=== PATIENT | female | born 1995 | race Caucasian/White ===

== ENCOUNTER 2022-01-28 14:25 | Inpatient (IN) | payer OTHER ==
[2022-01-28 15:11] LABS: Uric Acid 5.2 mg/dL (3.7-7.4)
[2022-01-28 15:13] LABS: Creatinine,Urine Random 176.9 mg/dL
[2022-01-28 15:28] LABS: Basophils # (A) 0.1 k/uL (0-0.2); Basophils % (A) 1 %; Eosinophils # (A) 0.1 k/uL (0-0.7); Eosinophils % (A) 1 %; HCT 38.7 % (34.0-46.0); HGB 13.5 gm/dL (11.4-16.0); Lymphocytes % (A) 20 %; MCH 32.9 pg (25.0-35.0); MCHC 34.8 g/dL (31.0-37.0); MCV 94.5 fL (80.0-100.0); Mean Platelet Volume 11.7; Monocytes # (A) 0.5 k/uL (0-1.0); Monocytes % (A) 5 %; Neutrophils # (A) 7.3 k/uL (1.3-7.7); Neutrophils % (A) 72 %; RBC 4.09 m/uL (3.80-5.40); RDW 15.3 % (11.5-15.5); WBC 10.1 k/uL (3.8-10.6)
[2022-01-28] MEDS ORDERED: LABETALOL 5 MG/ML VIAL MDV IVP PRN ×3 (15:40)
[2022-01-28] MEDS ORDERED: MAGNESIUM SULFATE-WATER PMX 4 GM in WATER FOR INJECTION 1 100ML.BAG IVPB ONE (15:40)
[2022-01-28] MEDS ORDERED: CALCIUM GLUCONATE 1 GM/10 ML VIAL IV PRN (15:40)
[2022-01-28] MEDS ORDERED: hydrALAZINE HCL 20 MG/ML 1 ML VIAL IVP PRN (15:40)
[2022-01-28] MEDS ORDERED: OXYTOCIN 10 UNIT/ML 1 ML VIAL IM PRN (15:42)
[2022-01-28] MEDS ORDERED: CARBOPROST TROMETHAMINE 250 MCG/ML 1 ML AMP IM PRN (15:42)
[2022-01-28] MEDS ORDERED: TERBUTALINE 1 MG/ML VIAL SQ PRN (15:42)
[2022-01-28] MEDS ORDERED: LIDOCAINE 0.5% (PF) 5 MG/ML (50 ML SDV) SQ PRN (15:42)
[2022-01-28] MEDS ORDERED: METHYLERGONOVINE 0.2 MG/ML 1 ML AMP IM PRN (15:42)
[2022-01-28] MEDS ORDERED: OXYTOCIN 30 UNITS/500 ML NS 30 UNIT in SALINE 1 500ML.BAG IV SCH (15:45)
[2022-01-28 15:47] LABS: Platelet Count 60 k/uL (150-450)
[2022-01-28] MEDS: LACTATED RINGERS 1,000 ML IV SCH (16:20)
[2022-01-28] MEDS: MAGNESIUM SULFATE-WATER PMX 20 GM in WATER FOR INJECTION 1 500ML.BAG IV SCH (17:02)
[2022-01-28 18:26] LABS: INR 0.9 (<1.2)
[2022-01-28 20:38] LABS: African American GFR (CKD) >90 (>60 ml/min/1.73 sqM); Blood Urea Nitrogen 12 mg/dL (7-17); Non-African American GFR(CKD) >90 (>60 ml/min/1.73 sqM)
[2022-01-28] MEDS: BUTORPHANOL 1 MG/ML 1 ML VIAL IV PRN (22:56)
[2022-01-29] MEDS: BUTORPHANOL 1 MG/ML 1 ML VIAL IV PRN ×2 (01:11→03:28)
[2022-01-29] MEDS: MAGNESIUM SULFATE-WATER PMX 20 GM in WATER FOR INJECTION 1 500ML.BAG IV SCH ×3 (03:45→23:12)
[2022-01-29 06:29] LABS: HCT 39.9 % (34.0-46.0); HGB 13.3 gm/dL (11.4-16.0); MCH 31.3 pg (25.0-35.0); MCHC 33.4 g/dL (31.0-37.0); MCV 93.5 fL (80.0-100.0); Mean Platelet Volume 9.5; Poikilocytosis Slight; RBC 4.26 m/uL (3.80-5.40); RDW 14.8 % (11.5-15.5); WBC 15.5 k/uL (3.8-10.6)
[2022-01-29 06:42] LABS: Platelet Count 51 k/uL (150-450)
[2022-01-29 06:43] LABS: African American GFR (CKD) >90 (>60 ml/min/1.73 sqM); Blood Urea Nitrogen 11 mg/dL (7-17); Non-African American GFR(CKD) >90 (>60 ml/min/1.73 sqM)
[2022-01-29 07:42] LABS: Uric Acid 6.4 mg/dL (3.7-7.4)
[2022-01-29] MEDS ORDERED: CITRIC ACID-SODIUM CITRATE 15 ML CUP PO ONE (09:08)
[2022-01-29] MEDS ORDERED: OXYTOCIN 10 UNIT/ML 1 ML VIAL ONE (09:20)
[2022-01-29] MEDS ORDERED: DEXAMETHASONE SOD PHOSPHATE 10 MG/ML 1 ML VIAL ONE (09:20)
[2022-01-29] MEDS ORDERED: HYDROmorphone (PF) 1 MG/ML ONE (09:20)
[2022-01-29] MEDS ORDERED: SUCCINYLCHOLINE CHLORIDE 200 MG/10 ML VIAL IV ONE (09:20)
[2022-01-29] MEDS ORDERED: PROPOFOL 10 MG/ML 20 ML VIAL IV ONE (09:20)
[2022-01-29] MEDS ORDERED: ONDANSETRON 4 MG/2 ML VIAL ONE (09:20)
[2022-01-29] MEDS ORDERED: miSOPROStoL 200 MCG TAB PO STA (09:30)
[2022-01-29] MEDS ORDERED: NALOXONE 0.4 MG/ML 1 ML VIAL IV PRN (10:04)
[2022-01-29] MEDS ORDERED: ONDANSETRON 4 MG/2 ML VIAL IVP PRN (10:04)
[2022-01-29] MEDS ORDERED: ZOLPIDEM 5 MG TAB PO PRN (10:04)
[2022-01-29] MEDS ORDERED: diphenhydrAMINE 50 MG/ML 1 ML VIAL IVP PRN ×2 (10:04)
[2022-01-29] MEDS ORDERED: SIMETHICONE 80 MG CHEWABLE PO PRN (10:04)
[2022-01-29] MEDS ORDERED: diphenhydrAMINE 50 MG CAP PO PRN (10:04)
[2022-01-29] MEDS ORDERED: METOCLOPRAMIDE 5 MG/ML 2 ML VIAL IVP PRN (10:04)
[2022-01-29] MEDS ORDERED: diphenhydrAMINE 25 MG CAP PO PRN (10:04)
[2022-01-29] MEDS ORDERED: HYDROmorphone PCA 10 MG/50 ML BAG IV PRN (10:07)
[2022-01-29] MEDS ORDERED: LACTATED RINGERS 1,000 ML IV SCH (10:15)
[2022-01-29] MEDS ORDERED: OXYTOCIN 30 UNITS/500 ML NS 30 UNIT in SALINE 1 500ML.BAG IV SCH (10:15)
--- NOTE | 2022-01-29 10:16 | P.OP ---
Date of Procedure: 01/29/22 Preoperative Diagnosis: IUP at 39-5/7 weeks, hellp syndrome, severe preeclampsia, arrest of descent Postoperative Diagnosis: Same Procedure(s) Performed: Primary low transverse section Anesthesia: CHARMAINE Surgeon: Mayra Mccormick Seasoning Sprayer #1: Chiqui Solis Estimated Blood Loss (ml): 820 Urine output (ml): 100 Pathology: other (Placenta) Condition: stable Disposition: observation Indications for Procedure: 26-year-old at 39-5/7 weeks' seen for routine visit yesterday in the office with noted elevated blood pressures of 138/90, 3+ proteinuria. Patient was sent to triage where preeclampsia labs were drawn. Elevated liver enzymes were noted, low platelets at 60. Patient was admitted to labor and delivery for induction of labor secondary to preeclampsia with severe features and help syndrome. Patient progressed through labor eventually undergoing amniotomy and clear fluid was obtained. Patient progressed through labor using Stadol and nitrous for pain control during labor. She progressed to complete began pushing. After about an hour increasing It with no descent of the head through the bony pelvis was appreciated. Decision at that point was made to proceed with primary . This morning were noted to be 51. Patient was given platelets infusion during the . Operative Findings: Normal uterus tubes and ovaries were appreciated. Viable female delivered at 9:30, weight of 6 lbs. 9 oz., Apgars of 7 and 9 at one and 5 minutes respectively. A large amount That was appreciated. Description of Procedure: Patient was taken back to the operating suite where general anesthesia was obtained without difficulty by the anesthesia department. She was prepped and draped prior to anesthesia in the dorsal supine position. A Pfannenstiel skin incision was made once the ET tube was placed, the incision was extended to the fascia which was extended laterally. The superior aspect of the fascial incision was then grasped eric clamps, elevated and underlying rectus muscle was dissected off sharply. The inferior aspect of the fascial incision was then grasped eric clamps, elevated and underlying rectus muscles dissected off sharply once again. The rectus muscles were in the midline the peritoneum was identified and entered. This incision was then extended superiorly and inferiorly with good visualization of bladder. Bladder blade was inserted. A scalpel was then used to perform hysterotomy incision, clear fluid was encountered. The fetus was noted to be in a vertex presentation and delivered in the usual fashion. Spontaneous cry was noted. The umbilical cord was doubly clamped and cut. The infant was handed off to awaiting RN. The placenta was then delivered manually and the uterus was cleared of all clots and debris and exteriorized. The uterus was noted to be jalen at that time. Cytotec was placed rectally during this time as well. The hysterotomy incision was closed with 0 Vicryl in a running locked fashion. A second inverting suture was performed. Bleeding was noted on the right-hand side of the uterine incision therefore a [id number] suture was used to obtain hemostasis. The uterus was then returned to the abdomen and the gutters were cleared of all clots and debris. The uterine incision was inspected found to be hemostatic and Surgicel powder was placed along the hysterotomy incision. The peritoneum was loosely reapproximated the rectus muscles were inspected a points of bleeding were made hemostatic with the Bovie and a small amount of Surgicel powder that was left. The fascia was then closed with 0 Vicryl in a running fashion from one lateral edge the midline and the other lateral edge the midline. Subcutaneous tissue was found to be hemostatic and closed with 3-0 Vicryl in a running fashion. The skin was then closed with 4-0 Vicryl in a subcuticular fashion. Suture strips and sterile dressings were applied as needed. Bleeding was noted to be appropriate throughout the procedure given her platelets of 51. Uterus noted be firm and below the umbilicus at the end of the procedure. All counts were noted to be correct 2 at the end of the procedure. Patient did tolerate procedure well was taken back to her birthing suite for recovery.
--- NOTE | 2022-01-29 10:17 | P.HPOB ---
History of Present Illness H&P Date: 01/28/22 Chief Complaint: IUP @ 39 5/7 preeclampsia This maria del carmen 26 yo at 39 5/7 weeks that presented to the office for routine PNV, BP elevated at 130/90 and 3 + proteinuria is appreciated. she denies any s/s of preeclampsia. she is noting some midthoraic pain for which she is taking tylenol daily over the last few weeks. She denies VENEGAS or abdominal pain. she does note good FM, and an occasional ctx. she denies LOF or VB. she has been receiving routine care with Dr. Alcaraz and they having been monitoring her BP and also preeclampsia labs. recent negative labs on 01/06. On bloodwork this patient has a blood type of AB+, rubella status immune, B surface antigen negative, HIV negative, RPR is nonreactive, group beta strep culture negative. Review of Systems Constitutional: Denies chills, Denies fatigue, Denies fever Ears, nose, mouth and throat: Denies headache Cardiovascular: Reports leg edema Respiratory: Denies dyspnea Gastrointestinal: Denies nausea, Denies vomiting Genitourinary: Reports Musculoskeletal: Reports as per HPI Past Medical History History of Any Multi-Drug Resistant Organisms: None Reported Smoking Status: Never smoker - Past Family History Father Family Medical History: No Reported History Medications and Allergies Home Medications Medication Instructions Recorded Confirmed Type Acetaminophen Tab [Tylenol] 1 tab PO Q6HR PRN 01/28/22 01/28/22 History Vit No.179/Iron/Folic 1 tab PO DAILY 01/28/22 01/28/22 History [ Tablet] metFORMIN HCL 200 mg PO DAILY 01/28/22 01/28/22 History Allergies Allergy/AdvReac Type Severity Reaction Status Date / Time No Known Allergies Allergy Verified 01/28/22 14:35 Exam Osteopathic Statement: *. No significant issues noted on an osteopathic structural exam other than those noted in the History and Physical/Consult. Intake and Output 01/28/22 01/28/22 01/28/22 06:59 14:59 22:59 Other: Weight 89.811 kg targeted physical exam is done on this date in general this is a well nourished well developed female in NAD, breathing is noted to be non labored. abdomen is gravid and appropriate for GA, FHTs are noted to be category 1 Results Result Diagrams: 01/29/22 06:13 01/29/22 06:13 Abnormal Lab Results - Last 24 Hours (Table) 01/28/22 01/28/22 Range/Units 14:45 14:45 AST 157 H (14-36) U/L ALT 130 H (4-34) U/L U Random Total Protein >600 H (<12) mg/dL Assessment and Plan (1) Term Current Visit: Yes Status: Acute Code(s): Z34.90 - ENCNTR FOR SUPRVSN OF NORMAL , UNSP, UNSP TRIMESTER SNOMED Code(s): 87633728 (2) Preeclampsia Current Visit: Yes Status: Acute Code(s): O14.90 - UNSPECIFIED PRE- ECLAMPSIA, UNSPECIFIED TRIMESTER SNOMED Code(s): 214448124 Plan: 26yo at 39 5/7 weeks with preeclampsia, labs with noted elevated AST/ALT. she is admitted to labor and delivery for IOL, pitocin is started per hospital protocal, magnesium gtt is order as well given these lab findings. Labs reviewed, platelets noted to be 60, patient with diagnosis of hellp syndrome in addition to preeclampsia with severe features.
[2022-01-29] MEDS: LACTATED RINGERS 1,000 ML IV SCH ×3 (10:25→15:50)
[2022-01-29] MEDS: PRENATAL VIT-IRON-FOLIC ACID 1 EACH TABLET PO SCH (10:25)
[2022-01-29] MEDS: ACETAMINOPHEN IV (For NPO) 1,000 MG in EMPTY BAG 1 BAG IVPB SCH ×2 (10:28→18:37)
[2022-01-29 18:04] LABS: HCT 27.5 % (34.0-46.0); MCH 33.2 pg (25.0-35.0); MCHC 35.6 g/dL (31.0-37.0); MCV 93.2 fL (80.0-100.0); Mean Platelet Volume 10.5; Poikilocytosis Slight; RBC 2.95 m/uL (3.80-5.40); RDW 15.4 % (11.5-15.5); WBC 21.5 k/uL (3.8-10.6)
[2022-01-29 18:12] LABS: ALT 92 U/L (4-34); AST 129 U/L (14-36)
[2022-01-29 18:13] LABS: African American GFR (CKD) >90 (>60 ml/min/1.73 sqM); Blood Urea Nitrogen 12 mg/dL (7-17); LDH 1231 U/L (313-618); Non-African American GFR(CKD) >90 (>60 ml/min/1.73 sqM); Uric Acid 6.8 mg/dL (3.7-7.4)
[2022-01-29 18:17] LABS: HGB 9.8 gm/dL (11.4-16.0); INR 0.9 (<1.2); Partial Thromboplastin Time 25.4 sec (22.0-30.0); Prothrombin Time 10.3 sec (9.0-12.0)
[2022-01-29 18:18] LABS: Platelet Count 118 k/uL (150-450)
[2022-01-29 18:37] LABS: Band Neutrophils % 2 %; Lymphocytes # (M) 1.72 k/uL (1.0-4.8); Metamyelocytes # (M) 0.22 k/uL (0); Metamyelocytes % 1 %; Monocytes # (M) 0.43 k/uL (0-1.0); Myelocytes # (M) 0.22 k/uL (0); Myelocytes % 1 %; Neutrophils % (M) 87 %; Nucleated Red Blood Cells 0 /100 WBC (0-0); Total Cells Counted 200
[2022-01-29 18:39] LABS: Anisocytosis (M) Present; Polychromasia Present
[2022-01-29] MEDS: SENNOSIDES-DOCUSATE SODIUM 1 EACH TAB PO SCH (23:13)
[2022-01-30 06:38] LABS: ALT 92 U/L (4-34); AST 106 U/L (14-36); African American GFR (CKD) >90 (>60 ml/min/1.73 sqM); Blood Urea Nitrogen 14 mg/dL (7-17); LDH 1180 U/L (313-618); Non-African American GFR(CKD) 84 (>60 ml/min/1.73 sqM); Uric Acid 7.3 mg/dL (3.7-7.4)
[2022-01-30 06:45] LABS: Anisocytosis Slight; Basophils % (A) 0 %; Eosinophils % (A) 0 %; HCT 26.6 % (34.0-46.0); HGB 9.3 gm/dL (11.4-16.0); Lymphocytes % (A) 15 %; MCH 33.4 pg (25.0-35.0); MCHC 35.1 g/dL (31.0-37.0); MCV 95.1 fL (80.0-100.0); Mean Platelet Volume 10.7; Monocytes # (A) 0.8 k/uL (0-1.0); Monocytes % (A) 4 %; Neutrophils # (A) 15.7 k/uL (1.3-7.7); Neutrophils % (A) 79 %; Platelet Count 136 k/uL (150-450); Poikilocytosis Slight; RBC 2.79 m/uL (3.80-5.40); RDW 16.7 % (11.5-15.5); WBC 19.9 k/uL (3.8-10.6)
[2022-01-30 06:49] LABS: INR 0.8 (<1.2); Partial Thromboplastin Time 22.5 sec (22.0-30.0); Prothrombin Time 9.5 sec (9.0-12.0)
[2022-01-30] MEDS: ACETAMINOPHEN TAB 500 MG TAB PO SCH ×3 (07:14→19:34)
--- NOTE | 2022-01-30 09:38 | P.PN ---
Subjective Progress Note Date: 01/30/22 Principal diagnosis: Postoperative day #1, HELLP syndrome. Vast improvement noted this morning Patient reports fatigue. Denies headache, visual changes, right upper quadrant pain. infant doing well and nursery. Objective - Vital Signs Vital signs: Vital Signs Temp 98.4 F 01/30/22 04:00 Pulse 85 01/30/22 04:00 Resp 16 01/30/22 04:00 BP 118/82 01/30/22 04:00 Pulse Ox 98 01/30/22 04:00 FiO2 Intake & Output 01/29/22 01/30/22 01/30/22 18:59 06:59 18:59 Intake Total 767.5 500 200 Output Total 1452 1250 1600 Balance -684.5 -750 -1400 Intake: IV 200 Intake, IV Titration 432.5 500 Amount Magnesium Sulfate-Water 432.5 500 Pmx 20 gm In Water For Injection 1 500ml.bag @ 2 GM/HR 50 mls/hr IV .Q10H CORTEZ Rx#:[id number] Blood Product 335 Platelet Pheresis Pas 335 Psoralen Unit [id number] Output: Urine 345 1250 1600 Output, Quantitative 1107 Blood Loss - Constitutional General appearance: Present: average body habitus, cooperative - EENT Eyes: Present: PERRLA ENT: Present: hearing grossly normal - Neck Neck: Present: normal ROM - Respiratory Respiratory: bilateral: CTA - Cardiovascular Rhythm: regular - Gastrointestinal Gastrointestinal Comment(s): Fundus firm, midline, symmetric, 18 week size. Incision clean and dry, Steri- Strips applied. - Neurologic Neurologic: Present: CNII-XII intact - Musculoskeletal Musculoskeletal: Present: gait normal, generalized weakness - Psychiatric Psychiatric: Present: A&O x's 3, appropriate affect, intact judgment & insight - Additional findings Additional findings: No peripheral edema. Normal reflexes lower extremities bilaterally. - Labs CBC & Chem 7: 01/30/22 06:11 01/30/22 06:11 Labs: Abnormal Lab Results - Last 24 Hours (Table) 01/29/22 01/29/22 01/29/22 Range/Units 17:52 17:52 17:52 WBC 21.5 H (3.8-10.6) k/uL RBC 2.95 L (3.80-5.40) m/uL Hgb 9.8 L D (11.4-16.0) gm/dL Hct 27.5 L (34.0-46.0) % RDW (11.5-15.5) % Plt Count 118 L D (150-450) k/uL Neutrophils # (1.3-7.7) k/uL Neutrophils # (Manual) 19.10 H (1.3-7.7) k/uL Metamyelocytes # (Man) 0.22 H (0) k/uL Myelocytes # (Manual) 0.22 H (0) k/uL Fibrinogen (200-500) mg/dL AST 129 H (14-36) U/L ALT 92 H (4-34) U/L Lactate Dehydrogenase 1231 H (313-618) U/L 01/29/22 01/30/22 01/30/22 Range/Units 17:52 06:11 06:11 WBC 19.9 H (3.8-10.6) k/uL RBC 2.79 L (3.80-5.40) m/uL Hgb 9.3 L (11.4-16.0) gm/dL Hct 26.6 L (34.0-46.0) % RDW 16.7 H (11.5-15.5) % Plt Count 136 L (150-450) k/uL Neutrophils # 15.7 H (1.3-7.7) k/uL Neutrophils # (Manual) (1.3-7.7) k/uL Metamyelocytes # (Man) (0) k/uL Myelocytes # (Manual) (0) k/uL Fibrinogen 580 H 678 H (200-500) mg/dL AST (14-36) U/L ALT (4-34) U/L Lactate Dehydrogenase (313-618) U/L 01/30/22 Range/Units 06:11 WBC (3.8-10.6) k/uL RBC (3.80-5.40) m/uL Hgb (11.4-16.0) gm/dL Hct (34.0-46.0) % RDW (11.5-15.5) % Plt Count (150-450) k/uL Neutrophils # (1.3-7.7) k/uL Neutrophils # (Manual) (1.3-7.7) k/uL Metamyelocytes # (Man) (0) k/uL Myelocytes # (Manual) (0) k/uL Fibrinogen (200-500) mg/dL AST 106 H (14-36) U/L ALT 92 H (4-34) U/L Lactate Dehydrogenase 1180 H (313-618) U/L Assessment and Plan Assessment: Doing well postoperative day #1, HELLP syndrome, labs normalizing, platelets within normal limits this morning. Clinically patient is doing well. Plan: May discontinue magnesium sulfate now. Slow dietary advancement. Shower later today. Continue postoperative care. Time with Patient: Less than 30
[2022-01-30] MEDS: PRENATAL VIT-IRON-FOLIC ACID 1 EACH TABLET PO SCH (13:10)
[2022-01-30] MEDS: SENNOSIDES-DOCUSATE SODIUM 1 EACH TAB PO SCH ×2 (13:10→19:34)
[2022-01-31] MEDS: ACETAMINOPHEN TAB 500 MG TAB PO SCH ×4 (01:30→22:40)
[2022-01-31] MEDS: SENNOSIDES-DOCUSATE SODIUM 1 EACH TAB PO SCH ×2 (08:08→19:31)
--- NOTE | 2022-01-31 08:52 | P.PN ---
Subjective Progress Note Date: 01/31/22 Principal diagnosis: Postoperative day #2 Denies headache, denies visual changes. Slightly incontinent of urine, improving this morning. Pain well managed. No complaints Objective - Vital Signs Vital signs: Vital Signs Temp 98.5 F 01/31/22 04:00 Pulse 88 01/31/22 04:00 Resp 18 01/31/22 04:00 BP 99/66 01/31/22 04:00 Pulse Ox 96 01/31/22 04:00 FiO2 Intake & Output 01/30/22 01/31/22 01/31/22 18:59 06:59 18:59 Intake Total 200 Output Total 3700 Balance -3500 Intake: IV 200 Output: Urine 3700 Other: # Voids 1 1 - Constitutional General appearance: Present: average body habitus, cooperative - EENT Eyes: Present: PERRLA ENT: Present: hearing grossly normal - Neck Neck: Present: normal ROM - Respiratory Respiratory: bilateral: CTA - Cardiovascular Rhythm: regular - Gastrointestinal Gastrointestinal Comment(s): Incision clean and dry, intact, Steri-Strips applied. Fundus firm, midline, symmetric, 16 week size. - Integumentary Integumentary: Present: normal - Neurologic Neurologic: Present: CNII-XII intact - Musculoskeletal Musculoskeletal: Present: gait normal, strength equal bilaterally - Psychiatric Psychiatric: Present: A&O x's 3, appropriate affect, intact judgment & insight - Labs CBC & Chem 7: 01/30/22 06:11 01/30/22 06:11 Assessment and Plan Plan: Begin ferrous sulfate once daily. Continue postoperative care. Possible discharge home tomorrow. Time with Patient: Less than 30
[2022-01-31] MEDS: FERROUS SULFATE 325 MG TAB PO SCH ×2 (09:28→19:31)
[2022-01-31] MEDS: IBUPROFEN 600 MG TAB PO SCH ×2 (11:54→18:57)
[2022-01-31] MEDS: PRENATAL VIT-IRON-FOLIC ACID 1 EACH TABLET PO SCH (15:08)
[2022-02-01] MEDS: IBUPROFEN 600 MG TAB PO SCH ×2 (00:53→08:13)
[2022-02-01] MEDS: ACETAMINOPHEN TAB 500 MG TAB PO SCH ×2 (04:32→11:02)
[2022-02-01] MEDS: FERROUS SULFATE 325 MG TAB PO SCH (08:13)
[2022-02-01] MEDS: SENNOSIDES-DOCUSATE SODIUM 1 EACH TAB PO SCH (08:13)
[2022-02-01] MEDS: PRENATAL VIT-IRON-FOLIC ACID 1 EACH TABLET PO SCH (08:13)
[2022-02-01 08:53] VITALS: BP 114/78; PULSE 82; RESP 16; TEMP 98
--- NOTE | 2022-02-01 11:02 | P.DS ---
Providers Date of admission: 01/28/22 15:36 Expected date of discharge: 02/01/22 Attending physician: Betty Alcaraz Primary care physician: Stated None - Discharge Diagnosis(es) (1) HELLP syndrome Current Visit: Yes Status: Acute (2) Preeclampsia Current Visit: Yes Status: Acute (3) Term Current Visit: Yes Status: Acute (4) Arrest of descent, delivered, current hospitalization Current Visit: Yes Status: Acute Hospital Course: This is a 26-year-old 1 now para 1 woman who is admitted at 39-5/7 weeks gestation for induction of labor secondary to severe preeclampsia and help syndrome. She was found at routine visit to have 3+ proteinuria and on moderate high blood pressure. The had been monitored for mild hypertension and previously had normal testing with 24-hour urine protein and labs. Upon evaluation in labor and delivery triage she was found to have significantly elevated protein and creatinine ratio on urinalysis as well as elevated LFTs and platelets of 60,000. Her cervix was favorable and induction of labor was initiated. She underwent a Pitocin induction of labor with magnesium sulfate seizure prophylaxis. She did on alternate progressed to complete cervical dilation and had approximately 60 minute second stage of labor at which time no descent of the vertex was appreciated. She therefore went for primary low transverse section. Her platelets at the time of surgery were found to be 51,000. General anesthetic was therefore performed. She received a platelet transfusion intraoperatively. EBL was approximately 800 mL's. Findings at the time of surgery were significant for a female weighing 6 lbs. 9 oz. with Apgars of 7 at 1 minute and 9 at 5 minutes. Please see operative report for details. Postoperatively the patient was continued on magnesium sulfate for 24 hours. The afternoon of postoperative day 0 her platelets had improved to 118,000 and her LFTs were trending downward. Her blood pressures remained stable. By post operative day #1 her platelet had improved to 136,000 and her LFTs continued to trend downward. She was able to void spontaneously once magnesium sulfate was discontinued and was transitioned to a general diet. By postoperative day #2 her blood pressures continued to normalize. She was able to ambulate and void normally. By postoperative day #3 her incision appeared well healing. She had 1+ bilateral lower extremity edema and minimal deep tendon reflexes. Her abdomen is soft with no rebound or guarding. Her breathing is unlabored and her heart is a regular rate and rhythm. is breast-feeding successfully. She was deemed stable for discharged home with close follow-up. Prior to discharge events of labor and delivery were discussed in detail and patient and her were given ample opportunity to ask questions. She will follow up in 3 days in the office for blood pressure and wound check. Discharge precautions and preeclampsia precautions, bleeding precautions were reviewed. Procedures: Primary low transverse section Patient Condition at Discharge: Good Plan - Discharge Summary New Discharge Prescriptions: No Action Vit No.179/Iron/Folic [ Tablet] 1 tab PO DAILY metFORMIN HCL 200 mg PO DAILY Acetaminophen Tab [Tylenol] 1 tab PO Q6HR PRN PRN Reason: pain Discharge Medication List Acetaminophen Tab [Tylenol] 1 tab PO Q6HR PRN 01/28/22 [History] Vit No.179/Iron/Folic [ Tablet] 1 tab PO DAILY 01/28/22 [History] metFORMIN HCL 200 mg PO DAILY 01/28/22 [History] Follow up Appointment(s)/Referral(s): Betty Alcaraz MD [STAFF PHYSICIAN] - 02/04/22 Activity/Diet/Wound Care/Special Instructions: Follow-up in 3 days after surgery in the office. May use [id number] ibuprofen and/or Tylenol as needed for pain. Call the office with any concerning signs or symptoms including fever greater than 101, blood pressure greater than 150/90, severe abdominal pain, heavy vaginal bleeding, signs of wound infection, headaches, visual changes, increased swelling or redness of the lower extremities, signs of depression. No driving for 2 weeks after surgery. No heavy lifting or vigorous activity until reevaluated in the office. No intercourse for 6 weeks after delivery. Discharge Disposition: HOME SELF-CARE
== END 2022-02-01 11:45 | disposition home or self-care (01) | DRG 788 ==
LOC: FBPOP 14:25 → 4FBP 15:36
PROVIDERS: ADMIT Obstetrics & Gynecology Obstetrics; ATTEND Obstetrics & Gynecology
PROC: 3E033VJ Introduction of Other Hormone into Peripheral Vein, Percutaneous Approach (ICD-10-PCS; 2022-01-29)
PROC: 10907ZC Drainage of Amniotic Fluid, Therapeutic from Products of Conception, Via Natural or Artificial Opening (ICD-10-PCS; 2022-01-29)
PROC: 4A0HXCZ Measurement of Products of Conception, Cardiac Rate, External Approach (ICD-10-PCS; 2022-01-29)
PROC: 10D00Z1 Extraction of Products of Conception, Low, Open Approach (ICD-10-PCS; principal; 2022-01-29 09:28)
DX: O14.24 HELLP syndrome, complicating childbirth (principal); R32 Unspecified urinary incontinence; Z37.0 Single live birth; O90.89 Other complications of the puerperium, not elsewhere classified; Z3A.39 39 weeks gestation of pregnancy; Z79.84 Long term (current) use of oral hypoglycemic drugs; O32.4XX0 Maternal care for high head at term, not applicable or unspecified
CPT/HCPCS: 59025; 82565; 82570; 83615; 84156; 84450; 84460; 84520; 84550; 85025; 85027; 85384; 85610; 85730; 86850; 86900; 86901; 88307; 99215

== ENCOUNTER → 2023-09-07 | Outpatient (CLI) | payer OTHER ==
[2023-09-08 02:10] LABS: Basophils # (A) 0.03 X 10*3/uL (0.00-0.10); Basophils % (A) 0.4 %; Eosinophils # (A) 0.03 X 10*3/uL (0.04-0.35); Eosinophils % (A) 0.4 %; HCT 42.5 % (37.2-46.3); HGB 14.2 g/dL (12.0-15.0); Lymphocytes % (A) 29.7 %; MCH 31.6 pg (27.0-32.0); MCHC 33.4 g/dL (32.0-37.0); MCV 94.7 FL (80.0-97.0); Mean Platelet Volume 9.8 FL (9.5-12.2); Monocytes # (A) 0.58 X 10*3/uL (0.20-1.00); Monocytes % (A) 7.5 %; NRBC Per 100 WBC 0 X 10*3/uL (0.00-0.01); Neutrophils % (A) 61.9 %; Platelet Count 268 X 10*3/uL (140-440); RBC 4.49 X 10*6/uL (4.10-5.20); RDW 12.3 % (11.5-14.5); WBC 7.75 X 10*3/uL (4.50-10.00)
== END | disposition home or self-care (01) ==
LOC: LABPAT 16:20
PROVIDERS: ATTEND Obstetrics & Gynecology Obstetrics
DX: Z01.812 Encounter for preprocedural laboratory examination (principal); O02.1 Missed abortion
CPT/HCPCS: 36415; 85025; 86850; 86900; 86901

== ENCOUNTER 2023-09-09 10:24 | Day surgery (SDC) | payer OTHER ==
[2023-09-08 08:51] VITALS: BMI 22.6
[~2023-09-09 10:24] MED LIST: DEXAMETHASONE SOD PHOSPHATE 4 MG/ML 1 ML VIAL IV ONE; HYDROmorphone 0.5 MG/0.5 ML SYRINGE IVP PRN; MIDAZOLAM 2 MG/2 ML VIAL IV PRN; ONDANSETRON 4 MG/2 ML VIAL IVP ONE; Pre Op ABX Message 1 EACH MISC MISCELLANE ONE; SCOPOLAMINE 1 MG/72 HR PATCH TRANSDERM ONE
[2023-09-09 11:14] VITALS: RESP 16; TEMP 97.8
[2023-09-09] MEDS: LACTATED RINGERS 1,000 ML IV SCH (11:22)
--- NOTE | 2023-09-09 12:50 | US ---
EXAMINATION TYPE: US pelvis complete transvag DATE OF EXAM: 09/09/2023 COMPARISON: NONE CLINICAL INDICATION: Female, 27 years old with history of Missed ; Bleeding x 1 day TECHNIQUE: . Transabdominal sonographic images of the pelvis were acquired. Transvaginal sonographi c images were medically necessary to better assess the following anatomy: EXAM MEASUREMENTS: Uterus: 9.1 x 4.9 x 6.0 cm Endometrial Stripe: 2.1 cm Right Ovary: 2.8 x 1.7 x 1.7 cm Left Ovary: 2.9 x 1.7 x 2.2 cm 1. Uterus: anteverted 2. Endometrium: thickened with increased vascularity, retained products seen 3. Right Ovary: 1.4 x 0.8 x 1.6cm hypoechoic area 4. Left Ovary: wnl 5. Bilateral Adnexa: wnl 6. Posterior cul-de-sac: free fluid IMPRESSION: 1. Thickened and heterogeneous endometrium with some internal flow possibility of retained products o f conception. 2. No evidence of ovarian torsion or adnexal mass.
--- NOTE | 2023-09-09 13:53 | P.PN ---
Progress Note - Text Progress Note Date: 09/09/23 27-year-old -0-1-1 with last menstrual period of 1031 presented with missed AB at 8 weeks no pole or heart tones were appreciated on ultrasound. Patient states she began bleeding yesterday afternoon scant in the afternoon which progressed to heavy with clots through the evening. Patient states she bled through the night with minimal bleeding this morning. Patient did present to the hospital for scheduled suction dilation and curettage. Upon further questioning I was concerned that she passed all the tissue and suction dilation and curettage would not be needed. Ultrasound was performed. Ultrasound revealing a thickened endometrial lining at 2.1 cm with some hypervascular tissue concerning for retained products. Discussion with the patient regarding this finding and possible option of medical management was had with patient and her significant other. Vital signs stable In general is a well-nourished well-developed female in no acute distress breathing was noted to be nonlabored Abdomen is soft Assessment Incomplete AB Rh+ Plan After discussion with patient and her significant other they elected Cytotec for incomplete AB. Instructions are given to the patient 3 tablets vaginally with ibuprofen as needed for pain. [id number] ibuprofen 3 tablets every 6 hours as needed. Patient is to have a quantitative beta-hCG obtained next week. She is requesting [facility] as this is closer to her home in [place]. I will ER ask her Cytotec to her [facility]. Bleeding precautions are reviewed with patient in detail. All questions about plan of care discussed and patient states she is comfortable with this plan of care. She is to call this weekend with any concerns or questions.
[2023-09-09 14:20] VITALS: BP 101/58; PULSE 78
== END 2023-09-09 13:53 | disposition home or self-care (01) ==
LOC: OR 10:24
PROVIDERS: ATTEND Obstetrics & Gynecology Obstetrics
DX: Z53.8 Procedure and treatment not carried out for other reasons (principal); O02.1 Missed abortion; Z98.891 History of uterine scar from previous surgery
CPT/HCPCS: 76830; 76856

== ENCOUNTER 2024-09-19 10:15 | Inpatient (IN) | payer OTHER ==
[2024-09-19] MEDS ORDERED: CARBOPROST TROMETHAMINE 250 MCG/ML 1 ML AMP IM PRN (10:33)
[2024-09-19] MEDS ORDERED: OXYTOCIN 10 UNIT/ML 1 ML VIAL IM PRN (10:33)
[2024-09-19] MEDS ORDERED: METHYLERGONOVINE 0.2 MG/ML 1 ML AMP IM PRN (10:33)
[2024-09-19] MEDS ORDERED: TRANEXAMIC 1,000 MG/100ML-NACL 1,000 MG in EMPTY BAG 1 BAG IV PRN (10:33)
[2024-09-19] MEDS ORDERED: miSOPROStoL 200 MCG TAB PO PRN (10:33)
[2024-09-19] MEDS: LACTATED RINGERS 1,000 ML IV ONE (11:05)
[2024-09-19 11:09] LABS: Basophils % (A) 0 %; Eosinophils % (A) 0 %; HCT 39.9 % (34.0-46.0); HGB 13.3 gm/dL (11.4-16.0); Lymphocytes # (A) 2.2 k/uL (1.0-4.8); Lymphocytes % (A) 25 %; MCH 31.7 pg (25.0-35.0); MCHC 33.3 g/dL (31.0-37.0); MCV 95.1 fL (80.0-100.0); Mean Platelet Volume 8.7; Monocytes # (A) 0.5 k/uL (0-1.0); Monocytes % (A) 6 %; Neutrophils # (A) 5.8 k/uL (1.3-7.7); Neutrophils % (A) 67 %; Platelet Count 211 k/uL (150-450); RDW 12.5 % (11.5-15.5); WBC 8.7 k/uL (3.8-10.6)
[2024-09-19] MEDS: CITRIC ACID-SODIUM CITRATE 15 ML CUP PO ONE (11:45)
[2024-09-19] MEDS ORDERED: PHENYLEPHRINE-0.9% NACL SYG 1,000 MCG/10 ML SYRINGE ONE (12:01)
[2024-09-19] MEDS ORDERED: OXYTOCIN 30 UNITS/500 ML NS BAG IV ONE (12:01)
[2024-09-19] MEDS ORDERED: ONDANSETRON 4 MG/2 ML VIAL ONE (12:01)
[2024-09-19] MEDS ORDERED: MORPHINE SULFATE (PF) 0.3 MG/0.3 ML SYR ONE (12:01)
[2024-09-19] MEDS ORDERED: NALBUPHINE (ANES) 10 MG/ML - 1 ML AMP ONE (12:01)
--- NOTE | 2024-09-19 13:13 | P.HPOB ---
History of Present Illness H&P Date: 09/19/24 Chief Complaint: IUP at 40 and 1 sevenths weeks, history of section x 1 This is a 28-year-old -0-1-1 that presented to labor and delivery at 40 and 1 sevenths weeks for scheduled repeat section. Patient has been receiving routine care which has been essentially uncomplicated. This morning patient notes good movement denies contractions vaginal bleeding or loss of fluid. On blood work this patient is a blood type AB+, rubella status immune, hepatitis B surface antigen negative, HIV negative, RPR is nonreactive. Review of Systems Constitutional: Denies chills, Denies fatigue, Denies fever Ears, nose, mouth and throat: Denies headache Cardiovascular: Denies leg edema Respiratory: Denies dyspnea Gastrointestinal: Denies constipation, Denies diarrhea, Denies nausea, Denies vomiting Genitourinary: Reports Past Medical History Additional Past Medical History / Comment(s): PCOS History of Any Multi-Drug Resistant Organisms: None Reported Past Surgical History: No Surgical Hx Reported Past Anesthesia/Blood Transfusion Reactions: No Reported Reaction Past Psychological History: No Psychological Hx Reported Smoking Status: Never smoker Past Alcohol Use History: None Reported Past Drug Use History: None Reported - Past Family History Father Family Medical History: Hypertension Medications and Allergies Home Medications Medication Instructions Recorded Confirmed Type Aspirin 81 mg PO DAILY 09/19/24 09/19/24 History Vit No.179/Iron/Folic 1 each PO DAILY 09/19/24 09/19/24 History [ Tablet] Sertraline [Zoloft] 12.5 mg PO DAILY 09/19/24 09/19/24 History Allergies Allergy/AdvReac Type Severity Reaction Status Date / Time No Known Allergies Allergy Verified 09/19/24 10:30 Exam Osteopathic Statement: *. No significant issues noted on an osteopathic structural exam other than those noted in the History and Physical/Consult. Vital Signs Temp Pulse Resp BP 09/19/24 10:30 97.9 F 78 18 114/77 Intake and Output 09/18/24 09/19/24 09/19/24 22:59 06:59 14:59 Other: Weight 66.678 kg Targeted physical exam is performed this date General Is well-nourished well- developed female in no acute distress, breathing is nonlabored, abdomen is gravid and appropriate for gestational age, cervical exam is deferred, heart tones noted be category 1. Results Result Diagrams: 09/19/24 10:51 Assessment and Plan (1) History of section Current Visit: Yes Status: Acute Code(s): Z98.891 - HISTORY OF UTERINE SCAR FROM PREVIOUS SURGERY SNOMED Code(s): 277467128 (2) Term Current Visit: No Status: Acute Code(s): Z34.90 - ENCNTR FOR SUPRVSN OF NORMAL , UNSP, UNSP TRIMESTER SNOMED Code(s): 06271129 Plan: Admit to labor and delivery for scheduled repeat section IV Kefzol for surgical prophylaxis Preop labs Anesthesia into see patient Informed consent is obtained. Procedure was reviewed risks are discussed. Risks are reviewed including but not limited to infection, bleeding, damage to bladder, bowel, injury. Patient states understanding, questions are answered. Plan to proceed with repeat section
--- NOTE | 2024-09-19 13:15 | P.OP ---
Date of Procedure: 09/19/24 Preoperative Diagnosis: IUP at 40 and 1 sevenths weeks, history of section x 1, desires repeat Postoperative Diagnosis: Same Procedure(s) Performed: Repeat section Anesthesia: spinal Surgeon: Mayra Mccormick Production Recovery Operator #1: Tiffani Kc Estimated Blood Loss (ml): 608 IV fluids (ml): 600 Urine output (ml): 200 (Clear yellow) Pathology: none sent Condition: stable Disposition: observation Indications for Procedure: History of section x 1, desires repeat Operative Findings: Viable male infant delivered at 1232, weight of 7 pounds 14 ounces normal uterus tubes and ovaries were appreciated. Description of Procedure: The patient was prepped and draped in the usual fashion after spinal anesthesia was administered by the anesthesia department. A Pfannenstiel incision was made and extended of the abdominal cavity without difficulty. The bladder peritoneum was elevated and incised and reflected distally. A 2 cm incision was made in the transverse plane of the lower uterine segment to enter the uterus at which time clear fluid was noted. The incision was extended in both directions using the bandage scissors. The head was encountered within the field and delivered up and through the incision where the nose and mouth were thoroughly suctioned. Remainder of the infant was delivered onto the surgical field where the cord was doubly clamped, cut, and the infant was passed for resuscitative measures with weight and Apgars as noted above. The placenta was delivered manually, intact, and was grossly normal with a grossly normal three-vessel cord. The uterus was exteriorized and the interior cavity of the uterus swept of any remaining placental and membranous fragments with a laparotomy sponge. The margins of the incision were grasped with Bedoya clamps and the incision closed in 2 layers. First layer was a running locking layer of 0 Vicryl from margin to margin followed by a second layer of imbricating 0 Vicryl from margin to margin. Any small points of bleeding were then made hemostatic with the Bovie. Once hemostasis was achieved, the posterior cul-de-sac was suctioned with a guard and the uterine and ovarian findings are as noted above. The uterus was replaced within the abdominal cavity and the gutters swept of any remaining blood fluid or clot. The incision was again reexamined and hemostasis was noted to be excellent. Any small point of bleeding were made hemostatic with the Bovie. Once hemostasis was achieved the parietal peritoneum was loosely reapproximated. The layer of muscles were examined and made hemostatic with the Bovie. Attention was then turned to the fascia which was closed with 2 running stitches of 0 Vicryl proceeding from the lateral margins to the midpoint. The subcutaneous tissues were irrigated, made hemostatic with the Bovie, and reapproximated with a running stitch of 30 Vicryl. The skin was reapproximated with 4-0 Vicryl. Estimated blood loss for the case was approximately 608 mL. All sponge instrument and needle counts are correct. There were no complications. The patient tolerated the procedure well and proceeded to the recovery room in stable condition. Both mother and infant are resting comfortably in recovery.
[2024-09-19 13:31] VITALS: RESP 16
[2024-09-19] MEDS ORDERED: ZOLPIDEM 5 MG TAB PO PRN (15:10)
[2024-09-19] MEDS ORDERED: diphenhydrAMINE 50 MG/ML 1 ML VIAL IVP PRN ×2 (15:10)
[2024-09-19] MEDS ORDERED: NALOXONE 0.4 MG/ML 1 ML VIAL IV PRN (15:10)
[2024-09-19] MEDS ORDERED: diphenhydrAMINE 50 MG CAP PO PRN (15:10)
[2024-09-19] MEDS ORDERED: METOCLOPRAMIDE 5 MG/ML 2 ML VIAL IVP PRN (15:10)
[2024-09-19] MEDS ORDERED: ONDANSETRON 4 MG/2 ML VIAL IVP PRN (15:10)
[2024-09-19] MEDS: LACTATED RINGERS 1,000 ML IV SCH ×2 (15:25→23:23)
[2024-09-19] MEDS: ACETAMINOPHEN IV (For NPO) 1,000 MG in EMPTY BAG 1 BAG IVPB ONE (15:25)
[2024-09-19] MEDS: IBUPROFEN IV 800 MG in SODIUM CHLORIDE 0.9% 250 ML IV ONE (20:11)
[2024-09-19] MEDS: SENNOSIDES-DOCUSATE SODIUM 1 EACH TAB PO SCH (20:58)
[2024-09-19] MEDS: diphenhydrAMINE 25 MG CAP PO PRN (22:24)
[2024-09-20] MEDS: ACETAMINOPHEN TAB 500 MG TAB PO SCH (00:26)
[2024-09-20] MEDS: IBUPROFEN 800 MG TAB PO SCH (04:38)
[2024-09-20 06:44] LABS: Basophils % (A) 0 %; Eosinophils % (A) 0 %; HCT 28.9 % (34.0-46.0); HGB 10.6 gm/dL (11.4-16.0); Lymphocytes # (A) 1.7 k/uL (1.0-4.8); Lymphocytes % (A) 21 %; MCHC 36.8 g/dL (31.0-37.0); MCV 97.8 fL (80.0-100.0); Mean Platelet Volume 9.1; Monocytes # (A) 0.5 k/uL (0-1.0); Monocytes % (A) 6 %; Neutrophils # (A) 5.8 k/uL (1.3-7.7); Neutrophils % (A) 72 %; Platelet Count 141 k/uL (150-450); RBC 2.96 m/uL (3.80-5.40); RDW 13.2 % (11.5-15.5); WBC 8.1 k/uL (3.8-10.6)
--- NOTE | 2024-09-20 06:59 | P.PN ---
Progress Note - Text Progress Note Date: 09/20/24 Postop day 1 from under spinal anesthesia with intrathecal morphine given for postop pain management. Patient is doing well. Pain is well controlled. On visual analog scale 2/10 Mild itching present No nausea or vomiting reported. No Headache or weakness and numbness in the legs. No complications from spinal anesthesia.
[2024-09-20] MEDS: PRENATAL VIT-IRON-FOLIC ACID 1 EACH TABLET PO SCH (08:15)
--- NOTE | 2024-09-20 08:54 | P.PNOBGPC ---
Subjective - Subjective Principal diagnosis: Postop day 1, repeat section Interval history: Patient is doing well postoperatively. She is ambulating and voiding without difficulty. She is tolerating a regular diet without nausea or vomiting. States her pain is well-controlled. She is breast-feeding without difficulty. Patient reports: Reports appetite normal, Reports voiding normally, Reports pain well controlled, Reports ambulating normally [place]: doing well, nursing well Objective - Vital Signs Latest vital signs: Vital Signs Temp Pulse Resp BP Pulse Ox 09/20/24 08:00 98.0 F 75 16 99/60 98 09/20/24 04:30 97.3 F L 78 16 99/63 98 09/20/24 00:00 98.0 F 78 16 99/61 98 09/19/24 20:00 97.7 F 76 16 103/64 97 09/19/24 16:00 98.0 F 56 L 16 96/54 99 09/19/24 15:00 97 F L 60 16 92/52 98 09/19/24 14:45 57 L 16 94/52 97 09/19/24 14:30 74 16 101/59 98 09/19/24 14:15 64 16 96/52 97 09/19/24 14:00 67 16 96/51 09/19/24 13:45 60 16 99/59 09/19/24 13:30 58 L 16 102/56 98 09/19/24 13:15 64 16 97/50 98 09/19/24 13:00 96.8 F L 66 16 95/57 98 09/19/24 10:30 97.9 F 78 18 114/77 Intake and Output 09/19/24 09/20/24 09/20/24 22:59 06:59 14:59 Output Total 3500 600 500 Balance -3500 -600 -500 Output: Urine 3400 600 500 Uretheral (Calle) 2400 Output, Quantitative 100 Blood Loss Other: Voiding Method Indwelling Catheter Toilet # Voids 1 1 - Exam Extremities: Present: normal, edema Abdomen: Present: normal appearance, soft Incision: Present: normal, dry, intact Uterus: Present: normal, firm - Labs Labs: Abnormal Lab Results - Last 24 Hours (Table) 09/20/24 Range/Units 06:13 RBC 2.96 L (3.80-5.40) m/uL Hgb 10.6 L (11.4-16.0) gm/dL Hct 28.9 L (34.0-46.0) % MCH 36.0 H (25.0-35.0) pg Plt Count 141 L (150-450) k/uL Assessment and Plan (1) History of section Current Visit: Yes Status: Acute Code(s): Z98.891 - HISTORY OF UTERINE SCAR FROM PREVIOUS SURGERY SNOMED Code(s): 068047589 (2) Term Current Visit: No Status: Acute Code(s): Z34.90 - ENCNTR FOR SUPRVSN OF NORMAL , UNSP, UNSP TRIMESTER SNOMED Code(s): 92573743 (3) Status post section Current Visit: Yes Status: Acute Code(s): Z98.891 - HISTORY OF UTERINE SCAR FROM PREVIOUS SURGERY SNOMED Code(s): 464657674 Plan: Patient doing well postoperatively, plan to continue routine postoperative care. Anticipate discharge home tomorrow
--- NOTE | 2024-09-21 08:12 | P.DS ---
Providers Date of admission: 09/19/24 10:15 Expected date of discharge: 09/21/24 Attending physician: Mayra Mccormick Primary care physician: Stated None - Discharge Diagnosis(es) (1) History of section Current Visit: Yes Status: Acute (2) Term Current Visit: No Status: Acute (3) Status post section Current Visit: Yes Status: Acute Hospital Course: This is a 28-year-old 3 now para 2-0-1-2 that presented to labor and delivery on 09/19 at 40 and 1 sevenths weeks for scheduled repeat section. Patient had been receiving routine care which had been essentially uncomplicated, blood type of AB+. For full details on this patient please the dictated history and physical. Patient was admitted and taken back to the operating suite after informed consent was obtained. Patient delivered a viable male infant at 1232, weight of 7 pounds 14 ounces. For full details on the please see the dictated operative report. Patient's course has been uneventful. In this postoperative day #2 she is ambulating and voiding without difficulty. She is tolerating a regular diet without nausea or vomiting she states her pain is well-controlled. She would like discharge home. Patient Condition at Discharge: Good Plan - Discharge Summary New Discharge Prescriptions: No Action Vit No.179/Iron/Folic [ Tablet] 1 each PO DAILY Sertraline [Zoloft] 12.5 mg PO DAILY Aspirin 81 mg PO DAILY Discharge Medication List Aspirin 81 mg PO DAILY 09/19/24 [History] Vit No.179/Iron/Folic [ Tablet] 1 each PO DAILY 09/19/24 [History] Sertraline [Zoloft] 12.5 mg PO DAILY 09/19/24 [History] Follow up Appointment(s)/Referral(s): Mayra Mccormick DO [Doctor of Osteopathic Medicine] - 2 Weeks Patient Instructions/Handouts: (DC), (GEN) Activity/Diet/Wound Care/Special Instructions: No tub baths or intercourse until 6 weeks . [id number] ibuprofen 600 mg or 3 tablets every 6 hours as needed for pain. Patient is to follow-up in the office in 2 weeks for routine incision check. Should she have any concerns prior to this appointment she is urged to call the office and be seen prior. Discharge Disposition: HOME SELF-CARE
[2024-09-21 08:56] VITALS: BP 119/78; PULSE 72; TEMP 97.5
== END 2024-09-21 11:00 | disposition home or self-care (01) | DRG 788 ==
LOC: 4FBP 10:15
PROVIDERS: ADMIT Obstetrics & Gynecology Obstetrics; ATTEND Obstetrics & Gynecology Obstetrics
PROC: 10D00Z1 Extraction of Products of Conception, Low, Open Approach (ICD-10-PCS; principal; 2024-09-19 12:28)
DX: O34.211 Maternal care for low transverse scar from previous cesarean delivery (principal); O48.0 Post-term pregnancy; Z37.0 Single live birth; Z3A.40 40 weeks gestation of pregnancy; Z79.82 Long term (current) use of aspirin; Z79.899 Other long term (current) drug therapy; Z82.49 Family history of ischemic heart disease and other diseases of the circulatory system
CPT/HCPCS: 85025; 86850; 86900; 86901